=== PATIENT | female | born 1985 | race Caucasian/White ===

== ENCOUNTER 2018-08-12 21:29 | Emergency (ER) | payer BC ==
[~2018-08-12] VITALS: Ht 162.6 cm; Wt 61.0 kg
[2018-08-12 21:31] VITALS: BP 130/84
--- NOTE | 2018-08-12 21:53 | NUR ---
PT HERE FOR CEDENO PAIN AT THIS TIME. PT REPORTS THAT SHE HAD PRESSURES THAT ARE UNILATERAL BUT FLIP SIDES. PT DENIES ANY TRUAMA AT THIS TIME. PT REPORTS THAT ADVIL DOES MAKE IT BETTER. PT REPORTS CEDENO WORSE WITH CHEWING. PT DENIES COMPLEX MEDICAL HX. RECENTYL MOVED TO THE ARE TO WORK FOR THE [employer] CREW FROM [facility]. PT RESTING IN ROOM, LIGHTS DIMMED FOR COMFORT. CALL LIGHT IN REACH.
[2018-08-12] MEDS ORDERED: KETOROLAC 30 MG/1 ML ONE (21:56)
[2018-08-12] MEDS ORDERED: KETOROLAC 30 MG/1 ML IM ONE (22:00)
--- NOTE | 2018-08-12 22:48 | NUR ---
Patient/Caregiver given discharge instructions and they have confirmed that they understand the instructions. Patient ambulatory with steady gait.
== END 2018-08-12 22:59 | disposition home or self-care (01) ==
LOC: ED 22:53
DX: G44.219 Episodic tension-type headache, not intractable (principal); M62.838 Other muscle spasm
CPT/HCPCS: 96372; 99283; J1885